=== PATIENT | female | born 1955 | race Caucasian/White ===

== ENCOUNTER 2020-01-26 08:15 | Outpatient (CLI) | payer BC ==
--- NOTE | 2020-02-01 15:37 | MMO ---
Bilateral MAMMO Bilat Screen [facility]. CLINICAL HISTORY: Patient is 64 years old and is seen for screening. The patient has the following family history of breast cancer: mother, at age 63, malignant (generic). The patient has no personal history of cancer. VIEWS: The views performed were: bilateral craniocaudal with tomosynthesis and bilateral mediolateral oblique with tomosynthesis. FILMS COMPARED: The present examination has been compared to a prior imaging study performed at [facility] on 05/18/2016. This study has been interpreted with the assistance of computer-aided detection. MAMMOGRAM FINDINGS: The breasts are extremely dense, which may lower the sensitivity of mammography. There is a stable intramammary lymph node seen in the inner region of the left breast. There are no suspicious masses, suspicious calcifications, or new areas of architectural distortion. IMPRESSION: THERE IS NO MAMMOGRAPHIC EVIDENCE OF MALIGNANCY. A ROUTINE FOLLOW-UP MAMMOGRAM IN 1 YEAR IS RECOMMENDED. THE RESULTS OF THIS EXAM WERE SENT TO THE PATIENT. ACR BI-RADS Category 2 - Benign finding MAMMOGRAPHY NOTE: 1. A negative mammogram report should not delay a biopsy if a dominant of clinically suspicious mass is present. 2. Approximately 10% to 15% of breast cancers are not detected by mammography. 3. Adenosis and dense breasts may obscure an underlying neoplasm. Reported by: GISSEL TAM MD Electonically Signed: [id number]
== END 2020-01-26 08:16 | disposition home or self-care (01) ==
LOC: BICMAMMO 08:15
DX: Z12.31 Encounter for screening mammogram for malignant neoplasm of breast (principal); Z80.3 Family history of malignant neoplasm of breast
CPT/HCPCS: 77063; 77067

== ENCOUNTER 2025-11-20 08:52 | Outpatient (CLI) | payer MEDICARE ==
[2025-11-20] MEDS ORDERED: E-Z-HD 98% W/W 340GM BOT (x-ray ONLY) ONE (09:03)
[2025-11-20] MEDS ORDERED: Barium Sulfate 96% 176 GM BOT (xray ONLY) ONE (09:03)
[2025-11-20 10:22] LABS: #Basophils 0.05 10x3/uL (0.0-0.2); #Eosinophils 0.20 10x3/uL (0.0-0.7); #Monocytes 0.42 10x3/uL (0.11-0.59); #Neutrophils 3.68 10x3/uL (1.40-6.50); %Basophils 0.7 % (0.0-1.0); %Eosinophils 2.9 % (0.0-10.0); %Lymphocytes 36.7 % (21.0-51.0); %Monocytes 6.1 % (0.0-10.0); %Neutrophils 53.3 % (42.0-75.0); Hematocrit 37.7 % (36.0-47.0); Hemoglobin 12.0 g/dL (12.0-16.0); Mean Corpuscular Hemoglobin 30.7 pg (27.0-31.0); Mean Corpuscular Volume 96.4 fL (78.0-98.0); Platelet Count 230 10x3/uL (130-400); Red Blood Cell (RBC) Count 3.91 mill/uL (4.20-5.40); White Blood Cell (WBC) Count 6.90 10x3/uL (4.8-10.8)
[2025-11-20 10:29] LABS: ALT (SGPT) 9 U/L (Less than 34); AST (SGOT) 50 U/L (11-34); Albumin 3.8 g/dL (3.1-4.5); Alkaline Phosphatase 73 U/L (40-110); Anion Gap 16 mmol/L (10-20); BUN (Urea Nitrogen) 10 mg/dL (9.8-20.1); Bilirubin, Total 0.9 mg/dL (0.3-1.2); Calc. Creatinine Clearance 0 mL/min (70-130); Calcium 9.4 mg/dL (7.8-10.44); Carbon Dioxide 27 mmol/L (23-31); Chloride 108 mmol/L (98-107); Globulin 3.0 g/dL (2.4-3.5); Glucose 104 mg/dL (80-115); Potassium 3.8 mmol/L (3.5-5.1); Sodium 147 mmol/L (136-145)
== END 2025-11-20 08:53 | disposition home or self-care (01) ==
LOC: RAD 08:52
PROVIDERS: ATTEND Specialist
DX: Z48.815 Encounter for surgical aftercare following surgery on the digestive system (principal); Z98.84 Bariatric surgery status; Z98.890 Other specified postprocedural states
CPT/HCPCS: 36415; 74246; 80053; 85025